=== PATIENT | female | born 1975 | race African-American/Black ===

== ENCOUNTER 2019-07-24 21:10 | Emergency (ER) | payer OTHER ==
[~2019-07-24] VITALS: Ht 167.6 cm; Wt 115.0 kg
[2019-07-24] MEDS ORDERED: ONDANSETRON ODT 4 MG TAB.RAPDIS PO ONE (21:30)
[2019-07-24] MEDS ORDERED: MECLIZINE 12.5 MG TABLET. PO PRN (21:30)
[2019-07-24] MEDS ORDERED: IV NORMAL SALINE 1,000ML 1,000 ML IV ONE (21:30)
--- NOTE | 2019-07-24 21:37 | PHYS DOC ---
Past History Past Medical History: Anxiety, Arthritis, Depression, GERD, Other Additional Past Medical Histor: fibromyalgia, dislexic, chronic back pain, hernia, mood swing Past Surgical History: , Other Additional Past Surgical Histo: wisdom teeth Alcohol Use: None General Adult EDM: Chief Complaint: DIZZY/LIGHT HEADED HPI: HPI: Patient is a 44 year old female who presents for evaluation of dizziness and nausea. Symptoms started about 4 hours prior to arrival. She did vomit at that time as well. She has been having some increasing lightheadedness. However she denies chest pain or shortness of air. Patient has a chronic headache and has chronic migraines. Patient does not have any reported focal deficits however. Patient has a history of chronic pain as well as fibromyalgia. Patient does not have any known cardiac history. Patient described it as the room was spinning. [] Review of Systems: Review of Systems: Constitutional: Denies fever or chills Eyes: Denies change in visual acuity HENT: Denies nasal congestion or sore throat Respiratory: Denies cough or shortness of breath Cardiovascular: Denies chest pain or edema GI: Denies abdominal pain, had nausea and vomiting, no bloody stools or diarrhea : Denies dysuria Musculoskeletal: Denies back pain or joint pain Integument: Denies rash Neurologic: chornic headache, no focal weakness or sensory changes Endocrine: Denies polyuria or polydipsia Lymphatic: Denies swollen glands Psychiatric: Denies depression or anxiety Heart Score: Risk Factors: Risk Factors: DM, Current or recent (<one month) smoker, HTN, HLP, family history of CAD, obesity. Risk Scores: Score 0 - 3: 2.5% MACE over next 6 weeks - Discharge Home Score 4 - 6: 20.3% MACE over next 6 weeks - Admit for Clinical Observation Score 7 - 10: 72.7% MACE over next 6 weeks - Early Invasive Strategies Current Medications: Current Meds: Current Medications Medications (Trade) Dose Ordered Sig/Chaya Start Time Stop Time Status Last Admin Dose Admin Meclizine HCl (Antivert) 25 mg 1X PRN 07/24/19 21:30 UNV Ondansetron HCl (Zofran Odt) 4 mg 1X ONCE 07/24/19 21:30 07/24/19 21:31 UNV Sodium Chloride 1,000 ml @ 1,000 mls/hr 1X ONCE 07/24/19 21:30 07/24/19 22:29 UNV Allergies: Allergies: Allergies Coded Allergies Type Severity Reaction Last Updated Verified No Known Drug Allergies 07/24/19 No Physical Exam: PE: Constitutional: Well developed, well nourished, mild acute distress, non-toxic appearance. [] HENT: Normocephalic, atraumatic, bilateral external ears normal, oropharynx moist, no oral exudates, nose normal. [] Eyes: PERRL, EOMI, conjunctiva normal, no discharge. [] Neck: Normal range of motion, no tenderness, supple, no stridor. [] Cardiovascular:Heart rate regular rhythm, no murmur [] Lungs & Thorax: Bilateral breath sounds clear to auscultation [] Abdomen: Bowel sounds normal, soft, no tenderness, no masses, no pulsatile masses. [] Skin: Warm, dry, no erythema, no rash. [] Back: No tenderness, no CVA tenderness. [] Extremities: No tenderness, no cyanosis, no clubbing, ROM intact, no edema. [] Neurologic: Alert and oriented X 3, normal motor function, normal sensory function, no focal deficits noted. [] Psychologic: Affect normal, judgement normal, mild anxious mood. [] Current Patient Data: Vital Signs: Vital Signs Date Time Temp Pulse Resp B/P (MAP) Pulse Ox O2 Delivery O2 Flow Rate FiO2 07/24/19 21:18 97.8 99 20 135/90 (105) 98 Room Air EKG: EKG: EKG read at 2134 showed normal sinus rhythm, rate 94, essentially unremarkable EKG, not STEMI [] Radiology/Procedures: Radiology/Procedures: [address] [address] IMAGING REPORT Signed PATIENT: MARTINEZ GOMEZ AACCOUNT: [id number] : 1975 LOCATION: ER AGE: 44 SEX: F EXAM STATUS: REG ER ORD. PHYSICIAN: KM FARRIS DO REASON: Dizziness, headache PROCEDURE: CT HEAD WO CONTRAST EXAM: CT Head without IV contrast CLINICAL HISTORY: Dizziness, headache COMPARISON: None. TECHNIQUE: Routine CT of the head without contrast. Soft tissues and bone windows were reviewed. PQRS compliance statement - One or more of the following individualized dose reduction techniques were utilized for this study: 1. Automated exposure control 2. Adjustment of the mA and/or kV according to patient size 3. Use of iterative reconstruction technique FINDINGS: There is no evidence of hemorrhage, mass or extra-axial fluid collection. Carpio-white differentiation is maintained with no evidence of edema. There is no mass effect or shift of the intracranial structures. The ventricles, basilar cisterns and cortical sulci are normal in size and configuration for the patients stated age. The cerebellum and brainstem are unremarkable. The calvarium demonstrates no evidence of fracture or focal lesion. There is normal aeration of the visualized paranasal sinuses and mastoid air cells. The visualized portions of the orbits are normal. IMPRESSION: No evidence for acute intracranial process. Electronically signed by: Laith Fernández MD (07/24/2019 10:46 PM) [facility] DICTATED AND SIGNED BY: LAITH FERNÁNDEZ MD DATE: 07/24/192245 CC: JIM RITCHIE MD; KM FARRIS DO ~ [] Course & Med Decision Making: Course & Med Decision Making Pertinent Labs and Imaging studies reviewed. (See chart for details) 2254 stable, feeling better at this time. Dizziness is now controlled. Patient's CBC, chemistries, troponin as well as CT scan no contrast were u nremarkable. Patient demonstrates a steady gait with no focal deficits or lateralizing signs. She will continue taking her home meclizine. Patient states she is already seen ENT and neurology for dizziness in the past. Prescription for limited number of Valium given because that seemed to improve her symptoms [] Dragon Disclaimer: Krupa Disclaimer: This electronic medical record was generated, in whole or in part, using a voice recognition dictation system. Departure Departure: Impression: Primary Impression: Dizziness Additional Impression: Nausea Disposition: HOME, SELF-CARE Condition: STABLE Referrals: JIM RITCHIE MD (PCP) Patient Instructions: Dizziness, Nausea, Adult Additional Instructions: Drink plenty fluids, rest, medication as directed, call and see your doctor right away and follow up, return if worsen Scripts Ondansetron Hcl (ZOFRAN) 4 Mg Tablet 1 TAB PO PRN Q6HRS PRN for NAUSEA, #12 TAB Prov: KM FARRIS DO 07/24/19 Diazepam (VALIUM) 5 Mg Tablet 5 MG PO BID for dizzy, anxiety, #10 TAB Prov: KM FARRIS DO 07/24/19 KM FARRIS DO Jul 24, 2019 21:37
--- NOTE | 2019-07-24 21:41 | EKG ---
[address] [address] Test Date: 2019-07-24 Test Time: 21:32:03 Pat Name: MARTINEZ GOMEZ Department: Room: Gender: F [employer] Maker: : 1975 Requested By: KM FARRIS Order Number: [id number] Reading MD: Ck Rodgers MD Measurements Intervals [place] Rate: 94 P: 52 MO: 154 QRS: 24 QRSD: 80 T: 39 QT: 332 QTc: 420 Interpretive Statements SINUS RHYTHM Electronically Signed On 07-25-2019 8:36:35 CDT by Ck Rodgers MD
[2019-07-24 21:59] LABS: BASO # 0.1 x10^3/uL (0.0-0.2); BASO % 1 % (0-3); EOS # 0.1 x10^3/uL (0.0-0.7); EOS % 2 % (0-3); HEMATOCRIT 35.3 % (36.0-47.0); HEMOGLOBIN 11.4 g/dL (12.0-15.5); LYMPH # 1.7 x10^3/uL (1.0-4.8); LYMPH % 23 % (24-48); MEAN CORPUSCULAR HEMOGLOBIN 29 pg (25-35); MEAN CORPUSCULAR HGB CONC 32 g/dL (31-37); MEAN CORPUSCULAR VOLUME 88 fL (79-100); MONO # 0.4 x10^3/uL (0.0-1.1); MONO % 5 % (0-9); NEUT % 69 % (31-73); PLATELET COUNT 257 x10^3/uL (140-400); RED BLOOD COUNT 3.99 x10^6/uL (3.50-5.40); RED CELL DISTRIBUTION WIDTH 14.1 % (11.5-14.5); WHITE BLOOD COUNT 7.2 x10^3/uL (4.0-11.0)
[2019-07-24 22:10] LABS: CLARITY,URINE BLOODY; COLOR,URINE RED
[2019-07-24 22:11] LABS: BACTERIA,URINE 0 /HPF (0-FEW); RBC,URINE TNTC /HPF (0-2); SQUAMOUS EPITHELIAL CELL,UR MOD /LPF; WBC,URINE 0 /HPF (0-4)
[2019-07-24 22:12] LABS: CALCIUM 8.4 mg/dL (8.5-10.1); CREATININE 0.9 mg/dL (0.6-1.0); GFR 81.9; POTASSIUM 3.8 mmol/L (3.5-5.1)
[2019-07-24 22:15] LABS: ALBUMIN 2.7 g/dL (3.4-5.0); ALBUMIN/GLOBULIN RATIO 0.7 (1.0-1.7); TOTAL BILIRUBIN 0.2 mg/dL (0.2-1.0); TOTAL PROTEIN 6.6 g/dL (6.4-8.2)
[2019-07-24] MEDS ORDERED: diphenhydrAMINE HCL 25 MG CAPSULE PO ONE (22:30)
[2019-07-24] MEDS ORDERED: diazePAM 5 MG TABLET. PO ONE (22:30)
--- NOTE | 2019-07-24 22:48 | RAD ---
EXAM: CT Head without IV contrast CLINICAL HISTORY: Dizziness, headache COMPARISON: None. TECHNIQUE: Routine CT of the head without contrast. Soft tissues and bone windows were reviewed. PQRS compliance statement - One or more of the following individualized dose reduction techniques were utilized for this study: 1. Automated exposure control 2. Adjustment of the mA and/or kV according to patient size 3. Use of iterative reconstruction technique FINDINGS: There is no evidence of hemorrhage, mass or extra-axial fluid collection. Carpio-white differentiation is maintained with no evidence of edema. There is no mass effect or shift of the intracranial structures. The ventricles, basilar cisterns and cortical sulci are normal in size and configuration for the patients stated age. The cerebellum and brainstem are unremarkable. The calvarium demonstrates no evidence of fracture or focal lesion. There is normal aeration of the visualized paranasal sinuses and mastoid air cells. The visualized portions of the orbits are normal. IMPRESSION: No evidence for acute intracranial process. Electronically signed by: Laith Rivers MD (07/24/2019 10:46 PM) [facility]
[2019-07-24 23:01] VITALS: BP 101/48
[2019-07-24] MEDS ORDERED: DIAZ5TAB PO (23:02)
[2019-07-24] MEDS ORDERED: ONDA4TAB7 PO (23:02)
== END 2019-07-24 23:12 | disposition home or self-care (01) ==
LOC: ER 21:10
DX: R42 Dizziness and giddiness (principal); R11.2 Nausea with vomiting, unspecified; G89.29 Other chronic pain; M79.7 Fibromyalgia; M19.90 Unspecified osteoarthritis, unspecified site; K21.9 Gastro-esophageal reflux disease without esophagitis
CPT/HCPCS: 36415; 70450; 80053; 81001; 84484; 85025; 93005; 96360; 99285; J8597; Q0162; Q0163; J7030

== ENCOUNTER 2019-09-09 18:09 | Emergency (ER) | payer OTHER ==
[~2019-09-09] VITALS: Ht 167.6 cm; Wt 138.0 kg
[2019-09-09 18:09] VITALS: BP 130/80
[~2019-09-09 18:09] MED LIST: DIAZ5TAB PO; ONDA4TAB7 PO
--- NOTE | 2019-09-09 19:03 | PHYS DOC ---
Past History Past Medical History: Anxiety, Arthritis, Depression, GERD, Other Additional Past Medical Histor: fibromyalgia, dislexic, chronic back pain, hernia, mood swing Past Surgical History: , Other Additional Past Surgical Histo: wisdom teeth Alcohol Use: None General Adult EDM: Chief Complaint: KNEE INJURY HPI: HPI: Patient is a 44 year old female who presents for evaluation of right knee pain after injury. Patient states 24 hours ago she felt a "pop" in her knee when walking. She is complaining of some numbness to her leg as well. She is able to bear weight but has some mild pain. Patient recently started working at [employer] and does a lot of walking. There is no other reported injuries. Patient does have history of prior surgery on that knee. Furthermore patient has a history of arthritis Review of Systems: Review of Systems: Constitutional: Denies fever or chills Eyes: Denies change in visual acuity HENT: Denies nasal congestion or sore throat Respiratory: Denies cough or shortness of breath Cardiovascular: Denies chest pain or edema GI: Denies abdominal pain, nausea, vomiting, bloody stools or diarrhea : Denies dysuria Musculoskeletal: chronic back pain, right knee tender, no loss bowel bladder control, no foot drop, no saddle anesthesia Integument: Denies rash Neurologic: Denies headache, focal weakness or sensory changes Endocrine: Denies polyuria or polydipsia Lymphatic: Denies swollen glands Psychiatric: Denies depression or anxiety Heart Score: Risk Factors: Risk Factors: DM, Current or recent (<one month) smoker, HTN, HLP, family histo ry of CAD, obesity. Risk Scores: Score 0 - 3: 2.5% MACE over next 6 weeks - Discharge Home Score 4 - 6: 20.3% MACE over next 6 weeks - Admit for Clinical Observation Score 7 - 10: 72.7% MACE over next 6 weeks - Early Invasive Strategies Allergies: Allergies: Allergies Coded Allergies Type Severity Reaction Last Updated Verified No Known Drug Allergies 07/24/19 No Physical Exam: PE: Constitutional: Well developed, well nourished, mild acute distress, non-toxic appearance. [] HENT: Normocephalic, atraumatic, bilateral external ears normal, oropharynx moist, no oral exudates, nose normal. [] Eyes: PERRL, EOMI, conjunctiva normal, no discharge. [] Neck: Normal range of motion, no tenderness, supple, no stridor. [] Cardiovascular:Heart rate regular rhythm, no murmur [] Lungs & Thorax: Bilateral breath sounds clear to auscultation [] Abdomen: Bowel sounds normal, soft, no tenderness, no masses, no pulsatile masses. [] Skin: Warm, dry, no erythema, no rash. [] Back: No tenderness. [] Extremities: mild medial tenderness right knee, no cyanosis, ROM intact, minimal edema. [] Neurologic: Alert and oriented, normal motor function, normal sensory function, no focal deficits noted. [] Psychologic: Affect normal, judgement normal, mood normal. [] EKG: EKG: [] Radiology/Procedures: Radiology/Procedures: [[address] [address] IMAGING REPORT Signed PATIENT: MARTINEZ GOMEZ AACCOUNT: [id number] : 1975 LOCATION: ER AGE: 44 SEX: F EXAM STATUS: REG ER ORD. PHYSICIAN: KM FARRIS DO REASON: Right knee pain, injury, Hx: knee surgery PROCEDURE: KNEE RIGHT 3V KNEE RIGHT 3V History: Reason: Right knee pain, injury, Hx: knee surgery / Spl. Instructions: / History: Technique: 3 views right knee. Comparison: None. Findings: Normal alignment. No fracture. No significant knee joint effusion. Minimal patellar spurring. Impression: 1. No acute osseous abnormality. Electronically signed by: Catracho Deshpande DO (09/09/2019 7:30 PM) [facility] DICTATED AND SIGNED BY: CATRACHO DESHPANDE DO DATE: 09/09/191929 CC: JIM RITCHIE MD; KM FARRIS DO ~] Course & Med Decision Making: Course & Med Decision Making Pertinent Labs and Imaging studies reviewed. (See chart for details) [] Dragon Disclaimer: Dragon Disclaimer: This electronic medical record was generated, in whole or in part, using a voice recognition dictation system. 1835 stable, feeling somewhat better at this time. X-rays failed to reveal any evidence of fracture or dislocation. Patient is able to bear weight. She already has anti-inflammatories at home. Patient off work tomorrow and will resume activity in 48 hours Departure Departure: Impression: Primary Impression: Strain of right knee Qualified Codes: S86.911A - Strain of unspecified muscle(s) and tendon(s) at lower leg level, right leg, initial encounter Disposition: HOME/RESIDENCE PRIOR TO ADM Condition: STABLE Referrals: JIM RITCHIE MD (PCP) Patient Instructions: Knee Sprain Additional Instructions: Rest, ice and elevate the injured right knee, limited weightbearing for the next 1 to 2 days. Take anti-inflammatory medication as directed, return if worse Justification of Admission: Justification of Admission: Justification of Admission Dx: N/A KM FARRIS DO Sep 09, 2019 19:03
[2019-09-09] MEDS ORDERED: KETOROLAC 60 MG/2 ML VIAL. IM ONE (19:15)
--- NOTE | 2019-09-09 19:33 | RAD ---
KNEE RIGHT 3V History: Reason: Right knee pain, injury, Hx: knee surgery / Spl. Instructions: / History: Technique: 3 views right knee. Comparison: None. Findings: Normal alignment. No fracture. No significant knee joint effusion. Minimal patellar spurring. Impression: 1. No acute osseous abnormality. Electronically signed by: Catracho Deshpande DO (09/09/2019 7:30 PM) [facility]
== END 2019-09-09 19:45 | disposition home or self-care (01) ==
LOC: ER 18:09
DX: S86.911A Strain of unspecified muscle(s) and tendon(s) at lower leg level, right leg, initial encounter (principal); M19.90 Unspecified osteoarthritis, unspecified site; K21.9 Gastro-esophageal reflux disease without esophagitis; G89.29 Other chronic pain; M79.7 Fibromyalgia; X50.9XXA Other and unspecified overexertion or strenuous movements or postures, initial encounter; Y93.01 Activity, walking, marching and hiking; Y92.89 Other specified places as the place of occurrence of the external cause; Y99.8 Other external cause status
CPT/HCPCS: 73562; 96372; 99283; J1885

== ENCOUNTER 2019-10-21 20:31 | Emergency (ER) | payer OTHER ==
[~2019-10-21] VITALS: Ht 167.6 cm; Wt 138.0 kg
[2019-10-21 20:31] VITALS: BP 128/68
[2019-10-21] MEDS ORDERED: IV NORMAL SALINE 1,000ML 1,000 ML IV ONE (20:45)
[2019-10-21] MEDS ORDERED: DEXAMETHASONE SOD PHOS 4 MG/ML VIAL IVP ONE (20:45)
[2019-10-21] MEDS ORDERED: diazePAM 5 MG TABLET PO ONE (20:45)
[2019-10-21 21:12] LABS: BASO % 1 % (0-3); EOS # 0.1 x10^3/uL (0.0-0.7); EOS % 1 % (0-3); HEMATOCRIT 36.2 % (36.0-47.0); HEMOGLOBIN 11.7 g/dL (12.0-15.5); LYMPH # 1.9 x10^3/uL (1.0-4.8); LYMPH % 22 % (24-48); MEAN CORPUSCULAR HEMOGLOBIN 29 pg (25-35); MEAN CORPUSCULAR HGB CONC 32 g/dL (31-37); MEAN CORPUSCULAR VOLUME 88 fL (79-100); MONO # 0.4 x10^3/uL (0.0-1.1); MONO % 5 % (0-9); NEUT # 6.2 x10^3uL (1.8-7.7); NEUT % 72 % (31-73); PLATELET COUNT 247 x10^3/uL (140-400); RED BLOOD COUNT 4.09 x10^6/uL (3.50-5.40); RED CELL DISTRIBUTION WIDTH 14.6 % (11.5-14.5); WHITE BLOOD COUNT 8.6 x10^3/uL (4.0-11.0)
[2019-10-21 21:20] LABS: BILIRUBIN,URINE NEG (NEG); CLARITY,URINE HAZY; COLOR,URINE YELLOW; GLUCOSE,URINE NEG (NEG)
--- NOTE | 2019-10-21 21:20 | EKG ---
[address] [address] Test Date: 2019-10-21 Test Time: 21:12:57 Pat Name: MARTINEZ GOMEZ Department: Room: Gender: F Adult Neurologist: : 1975 Requested By: MERLY SOMMERS Order Number: [id number] Reading MD: Measurements Intervals [place] Rate: 76 P: 0 MN: 128 QRS: 7 QRSD: 76 T: 8 QT: 362 QTc: 411 Interpretive Statements SINUS RHYTHM LOW VOLTAGE ABNORMAL ECG RI6.02 No previous ECG available for comparison
[2019-10-21 21:21] LABS: BACTERIA,URINE MOD /HPF (0-FEW); NITRITE,URINE NEG (NEG); SQUAMOUS EPITHELIAL CELL,UR MOD /LPF; UROBILINOGEN,URINE 0.2 mg/dL (0.2 mg/dL)
[2019-10-21 21:21] LABS: CALCIUM 8.8 mg/dL (8.5-10.1); CREATININE 0.9 mg/dL (0.6-1.0); GFR 81.9; POTASSIUM 3.6 mmol/L (3.5-5.1)
[2019-10-21 21:23] LABS: PREG TEST PT QUAL NEGATIVE (NEG)
--- NOTE | 2019-10-21 21:24 | PHYS DOC ---
Past History Past Medical History: Anxiety, Depression, GERD Additional Past Medical Histor: fibromyalgia, dislexic, chronic back pain, hernia, mood swing Past Surgical History: Cholecystectomy Additional Past Surgical Histo: wisdom teeth Alcohol Use: None General Adult EDM: Chief Complaint: DIZZY/LIGHT HEADED HPI: HPI: Patient is a [age] year old [sex] who presents with [] Review of Systems: Review of Systems: Constitutional: Denies fever or chills Eyes: Denies change in visual acuity HENT: Denies nasal congestion or sore throat Respiratory: Denies cough or shortness of breath Cardiovascular: Denies chest pain or edema GI: Denies abdominal pain, nausea, vomiting, bloody stools or diarrhea : Denies dysuria Musculoskeletal: Denies back pain or joint pain Integument: Denies rash Neurologic: Denies headache, focal weakness or sensory changes Endocrine: Denies polyuria or polydipsia Lymphatic: Denies swollen glands Psychiatric: Denies depression or anxiety Heart Score: Risk Factors: Risk Factors: DM, Current or recent (<one month) smoker, HTN, HLP, family history of CAD, obesity. Risk Scores: Score 0 - 3: 2.5% MACE over next 6 weeks - Discharge Home Score 4 - 6: 20.3% MACE over next 6 weeks - Admit for Clinical Observation Score 7 - 10: 72.7% MACE over next 6 weeks - Early Invasive Strategies Current Medications: Current Meds: Current Medications Medications (Trade) Dose Ordered Sig/Chaya Start Time Stop Time Status Last Admin Dose Admin Dexamethasone Sodium Phosphate (Decadron) 10 mg 1X ONCE 10/21/19 20:45 10/21/19 20:46 DC 10/21/19 21:00 10 MG Diazepam (Valium) 5 mg 1X ONCE 10/21/19 20:45 10/21/19 20:46 DC 10/21/19 21:00 5 MG Sodium Chloride 1,000 ml @ 1,000 mls/hr 1X ONCE 10/21/19 20:45 10/21/19 21:44 10/21/19 21:05 1,000 MLS/HR Allergies: Allergies: Allergies Coded Allergies Type Severity Reaction Last Updated Verified No Known Drug Allergies 07/24/19 No Physical Exam: PE: Constitutional: Well developed, well nourished, no acute distress, non-toxic appearance. [] HENT: Normocephalic, atraumatic, bilateral external ears normal, oropharynx moist, no oral exudates, nose normal. [] Eyes: PERRLA, EOMI, conjunctiva normal, no discharge. [] Neck: Normal range of motion, no tenderness, supple, no stridor. [] Cardiovascular:Heart rate regular rhythm, no murmur [] Lungs & Thorax: Bilateral breath sounds clear to auscultation [] Abdomen: Bowel sounds normal, soft, no tenderness, no masses, no pulsatile masses. [] Skin: Warm, dry, no erythema, no rash. [] Back: No tenderness, no CVA tenderness. [] Extremities: No tenderness, no cyanosis, no clubbing, ROM intact, no edema. [] Neurologic: Alert and oriented X 3, normal motor function, normal sensory function, no focal deficits noted. [] Psychologic: Affect normal, judgement normal, mood normal. [] Current Patient Data: Labs: Laboratory Tests Test 10/21/19 20:45 10/21/19 20:55 White Blood Count 8.6 x10^3/uL (4.0-11.0) Red Blood Count 4.09 x10^6/uL (3.50-5.40) Hemoglobin 11.7 g/dL (12.0-15.5) L Hematocrit 36.2 % (36.0-47.0) Mean Corpuscular Volume 88 fL (79-100) Mean Corpuscular Hemoglobin 29 pg (25-35) Mean Corpuscular Hemoglobin Concent 32 g/dL (31-37) Red Cell Distribution Width 14.6 % (11.5-14.5) H Platelet Count 247 x10^3/uL (140-400) Neutrophils (%) (Auto) 72 % (31-73) Lymphocytes (%) (Auto) 22 % (24-48) L Monocytes (%) (Auto) 5 % (0-9) Eosinophils (%) (Auto) 1 % (0-3) Basophils (%) (Auto) 1 % (0-3) Neutrophils # (Auto) 6.2 x10^3uL (1.8-7.7) Lymphocytes # (Auto) 1.9 x10^3/uL (1.0-4.8) Monocytes # (Auto) 0.4 x10^3/uL (0.0-1.1) Eosinophils # (Auto) 0.1 x10^3/uL (0.0-0.7) Basophils # (Auto) 0.0 x10^3/uL (0.0-0.2) Sodium Level 142 mmol/L (136-145) Potassium Level 3.6 mmol/L (3.5-5.1) Chloride Level 106 mmol/L (98-107) Carbon Dioxide Level 26 mmol/L (21-32) Anion Gap 10 (6-14) Blood Urea Nitrogen 21 mg/dL (7-20) H Creatinine 0.9 mg/dL (0.6-1.0) Estimated GFR (Cockcroft-Gault) 81.9 BUN/Creatinine Ratio 23 (6-20) H Glucose Level 86 mg/dL (70-99) Calcium Level 8.8 mg/dL (8.5-10.1) Total Bilirubin Pending Aspartate Amino Transferase (AST) Pending Alanine Aminotransferase (ALT) Pending Alkaline Phosphatase Pending Creatine Kinase Pending Creatine Kinase MB (Mass) Pending Creatine Kinase MB Relative Index Pending Total Protein Pending Albumin Pending Albumin/Globulin Ratio Pending Urine Collection Type Unknown Urine Color Yellow Urine Clarity Hazy Urine pH 5.5 Urine Specific [place] >=1.030 Urine Protein Neg (NEG-TRACE) Urine Glucose (UA) Neg mg/dL (NEG) Urine Ketones (Stick) Neg mg/dL (NEG) Urine Blood Trace (NEG) Urine Nitrite Neg (NEG) Urine Bilirubin Neg (NEG) Urine Urobilinogen Dipstick 0.2 mg/dL (0.2 mg/dL) Urine Leukocyte Esterase Neg (NEG) Urine RBC 3-5 /HPF (0-2) Urine WBC 1-4 /HPF (0-4) Urine Squamous Epithelial Cells Mod /LPF Urine Bacteria Mod /HPF (0-FEW) EKG: EKG: @2112 NSR at 76bpm, NO ST elevation, QRS 76ms, QT/QTc 362/411ms, low voltage QRS Radiology/Procedures: Radiology/Procedures: [] Course & Med Decision Making: Course & Med Decision Making Pertinent Labs and Imaging studies reviewed. (See chart for details) [] Dragon Disclaimer: Dragon Disclaimer: This electronic medical record was generated, in whole or in part, using a voice recognition dictation system. Departure Departure: Impression: Primary Impression: Dizziness Disposition: 01 HOME/RESIDENCE PRIOR TO ADM Condition: STABLE Referrals: JIM RITCHIE MD (PCP) MALLORIE GAN MD Patient Instructions: Dizziness, [id number], Vertigo, [id number] Additional Instructions: May also use Antivert (meclizine) which has been previously prescribed to you. Scripts Diazepam (VALIUM) 2 Mg Tablet 2 MG PO TID PRN for DIZZINESS, #10 TAB Prov: MERLY SOMMERS DO 10/21/19 Justification of Admission: Justification of Admission: Justification of Admission Dx: N/A MERLY SOMMERS DO Oct 21, 2019 21:24
[2019-10-21 21:37] LABS: ALBUMIN 2.7 g/dL (3.4-5.0); ALBUMIN/GLOBULIN RATIO 0.8 (1.0-1.7); TOTAL BILIRUBIN 0.3 mg/dL (0.2-1.0); TOTAL PROTEIN 6.1 g/dL (6.4-8.2)
[2019-10-21] MEDS ORDERED: DIAZ2TAB PO (22:28)
== END 2019-10-21 22:35 | disposition home or self-care (01) ==
LOC: ER 20:31
DX: R42 Dizziness and giddiness (principal); F41.9 Anxiety disorder, unspecified; F32.9 Major depressive disorder, single episode, unspecified; K21.9 Gastro-esophageal reflux disease without esophagitis; M79.7 Fibromyalgia; G89.29 Other chronic pain; Z90.49 Acquired absence of other specified parts of digestive tract
CPT/HCPCS: 36415; 80053; 81001; 82553; 84484; 84703; 85025; 85610; 85730; 87086; 93005; 96361; 96374; 99284; J1100; J7030

== ENCOUNTER 2019-11-18 13:23 | Emergency (ER) | payer OTHER ==
[~2019-11-18] VITALS: Ht 167.6 cm; Wt 138.8 kg
[~2019-11-18 13:23] MED LIST changes: +DIAZ2TAB PO
--- NOTE | 2019-11-18 13:40 | PHYS DOC ---
Past History Past Medical History: Anxiety, Arthritis, Depression, Fibromyalgia, GERD, IBS, Migraines Additional Past Medical Histor: dislexic, chronic back pain, hernia, mood swing Past Surgical History: Cholecystectomy, Knee Replacement Additional Past Surgical Histo: wisdom teeth, hernia Alcohol Use: None Adult General Chief Complaint Chief Complaint: LOWER EXTREMITY SWELLING HPI HPI Patient is a 44-year-old female who presents for lower extremity swelling. Onset was noted within the past 24 hours. Patient reports increased home stress, reports this involves biological father whom she has with and there son. Mother reports difficult custody bradley at present, made sure it [id number] to obtain her son and subsequently drove 23 hours in the car back to [place] to ensure her son was home in time to start the academic school year. Nonetheless, the day after said motor vehicle journey, patient reported noticeable swelling in bilateral feet. Patient denies any fever, COVID-19 symptoms, headache, lightheadedness, shortness of breath, chest pain, abdominal pain, hemoptysis, exogenous estrogen use, recent surgery, or history of malignancy. She does admit history of anxiety and extensive cardiovascular work-up in outpatient setting that has been grossly unremarkable to date Review of Systems Review of Systems Fourteen body systems of review of systems have been reviewed. See HPI for pertinent positives and negative responses, other coffey all other systems are negative, non-pertinent or non-contributory Allergies Allergies Allergies Coded Allergies Type Severity Reaction Last Updated Verified No Known Drug Allergies 07/24/19 No Physical Exam Physical Exam Constitutional: Well developed, obese, well nourished, no acute distress, non- toxic appearance. HENT: Normocephalic, atraumatic, bilateral external ears normal, oropharynx moist, no oral exudates, nose normal. Eyes: PERRLA, EOMI, conjunctiva normal, no discharge. Neck: Normal range of motion, no tenderness, supple, no stridor. Cardiovascular: Heart rate regular, sinus rhythm, no murmurs rubs or gallops Lungs & Thorax: Bilateral breath sounds clear to auscultation, slightly diminished due to body habitus Abdomen: Bowel sounds normal, soft, no tenderness, no masses, no pulsatile masses. Nonsurgical abdomen, no peritoneal signs Skin: Warm, dry, no erythema, no rash. Back: No tenderness, no CVA tenderness. Extremities: No tenderness, no cyanosis, no clubbing, ROM intact, no impressive edema, bilateral lower extremity circumference equal, negative Homans sign bilaterally Neurologic: Alert and oriented X 3, grossly normal motor & sensory function, no focal deficits noted. Psychologic: Affect normal, judgement normal, mood normal. Current Patient Data Vital Signs Vital Signs Date Time Temp Pulse Resp B/P (MAP) Pulse Ox O2 Delivery O2 Flow Rate FiO2 11/18/19 14:34 78 20 94/70 (78) 99 Room Air 11/18/19 13:30 98.1 80 20 115/89 (98) Room Air 97.0 EKG EKG EKG ordered and interpreted by myself at 1455 hrs. as normal sinus rhythm at 73 bpm, unremarkable intervals, no axis deviation, no ischemic findings, no fascicular blocks, no STEMI Radiology/Procedures Radiology/Procedures PROCEDURE: CHEST AP ONLY INDICATION: Reason: lower extremity edema / Spl. Instructions: / History: COMPARISON: None. FINDINGS: Single view of chest obtained. Cardiomediastinal silhouette is enlarged. Suboptimal exposure limits evaluation. A definite well-defined infiltrate is not seen within limits of this exam. The right mid to upper lung is not well evaluated. IMPRESSION: * Limited exam secondary to degree of exposure but definite focal airspace consolidation is not seen. Electronically signed by: Je Brock MD (11/18/2019 2:54 PM) [id number] ] Course & Med Decision Making Course & Med Decision Making Airway patent, breathing unlabored and unremarkable, vital signs also obtained and grossly unremarkable Comprehensive history and physical exam obtained Discussed above in addition to past medical history and outpatient work-up that is significant for significant cardiovascular work-up Discussed most likely diagnosis of dependent edema from prolonged immobility and lack of physical exercise versus other more serious pathology such as heart failure and blood clots PERC negative, discussed utility in obtaining d-dimer; however, also discussed limitations in this study given patient's obesity Asymptomatic patient preferred supportive care consisting of implementing compression socks, increasing physical activity, and decrease sodium intake with close outpatient follow-up I feel this plan of care is appropriate for patient given that she has good outpatient access to healthcare with PCP and previously established dining service worker I did stress that this might be an acute presentation of more concerning pathology, patient was aware Strict return precautions were discussed at length with good understanding by patient, all questions and concerns addressed prior to ER departure home in stable condition Dragon Disclaimer Dragon Disclaimer This electronic medical record was generated, in whole or in part, using a voice recognition dictation system. PERC Rule for PE PERC Rule for PE Response (Comments) Value Age > 50: No 0 HR > 100: No 0 Sa02 on room air <95%: No 0 Unilateral leg swelling: No 0 Hemoptysis: No 0 Recent surgery or trauma: No 0 Prior PE or DVT: No 0 Hormone use: No 0 Total 0 Departure Departure: Impression: Primary Impression: Leg edema Disposition: HOME/RESIDENCE PRIOR TO ADM Condition: STABLE Referrals: JIM RITCHIE MD (PCP) Patient Instructions: Edema, Peripheral Edema Additional Instructions: As discussed prior to ER departure, please continue to call PCP to schedule outpatient follow-up in upcoming 1 to 7 days Return precautions were discussed at length with you prior to discharge, please call or re-present to our ER if any of said symptoms reappear I recommend you adhere to a low-salt diet, increase your physical activity, and utilize vlau-vua-ldztiji compression socks daily to assist with resolution of your lower extremity swelling Given extensive cardiovascular work-up performed in last 12 months, low risk for further diagnostic work-up or intervention this ER visit With that said, it was discussed that this could be an acute presentation of more serious pathology so please keep in mind return precautions discussed It was a pleasure to take care of you, we hope you get feeling better soon! Justification of Admission: Justification of Admission: Justification of Admission Dx: N/A SAMANTHA MESA DO Nov 18, 2019 13:40
[2019-11-18 14:34] VITALS: BP 94/70
--- NOTE | 2019-11-18 14:57 | RAD ---
INDICATION: Reason: lower extremity edema / Spl. Instructions: / History: COMPARISON: None. FINDINGS: Single view of chest obtained. Cardiomediastinal silhouette is enlarged. Suboptimal exposure limits evaluation. A definite well-defined infiltrate is not seen within limits of this exam. The right mid to upper lung is not well evaluated. IMPRESSION: * Limited exam secondary to degree of exposure but definite focal airspace consolidation is not seen. Electronically signed by: Je Brock MD (11/18/2019 2:54 PM) [id number]
--- NOTE | 2019-11-18 15:52 | EKG ---
[address] [address] Test Date: 2019-11-18 Test Time: 14:46:14 Pat Name: MARTINEZ GOMEZ Department: Room: Gender: F Hims Coder: : 1975 Requested By: SAMANTHA MESA Order Number: [id number] Reading MD: Measurements Intervals [place] Rate: 73 P: 0 [place]: 122 QRS: 11 QRSD: 78 T: 11 QT: 354 QTc: 393 Interpretive Statements SINUS RHYTHM LOW LIMB LEAD VOLTAGE NO SPECIFIC ECG ABNORMALITIES RI6.02 No previous ECG available for comparison
== END 2019-11-18 15:34 | disposition home or self-care (01) ==
LOC: ER 13:23
DX: R60.0 Localized edema (principal); F41.9 Anxiety disorder, unspecified; M19.90 Unspecified osteoarthritis, unspecified site; F32.9 Major depressive disorder, single episode, unspecified; M79.7 Fibromyalgia; K21.9 Gastro-esophageal reflux disease without esophagitis; K58.9 Irritable bowel syndrome, unspecified; G43.909 Migraine, unspecified, not intractable, without status migrainosus; G89.29 Other chronic pain
CPT/HCPCS: 71045; 93005; 99284

== ENCOUNTER → 2020-04-02 | Outpatient (CLI) | payer OTHER ==
--- NOTE | 2020-04-02 14:59 | RAD ---
EXAM: Bilateral diagnostic mammogram. HISTORY: 35-year-old female presents for evaluation status post benign right breast biopsy. The patie nt is due for bilateral markedly TECHNIQUE: Full-field digital craniocaudal and mediolateral oblique views of both breasts are obtaine d for evaluation. Computer aided detection was applied. COMPARISON: 04/16/2019 BREAST PARENCHYMAL DENSITY: Level B - Scattered fibroglandular densities. FINDINGS: There is a biopsy clip within the central right breast, consistent with the site of prior r eported benign biopsy. There is no new suspicious mass, calcification or distortion within either destiney ast. There are stable areas of asymmetry with allowing for differences in imaging technique. IMPRESSION: BI-RADS Category 2: Benign finding(s). RECOMMENDATION: Annual mammography is recommended. If your mammogram demonstrates that you have dense breast tissue, which could hide abnormalities, and if you have other risk factors for breast cancer that have been identified, you might benefit from s upplemental screening tests that may be suggested by your ordering physician. Dense breast tissue, i n and of itself, is a relatively common condition. This information is not provided to cause undue c oncern, but rather to raise your awareness and to promote discussion with your physician regarding th e presence of other risk factors, in addition to dense breast tissue. A report of your mammography re sults will be sent to you and your physician. You should contact your physician if you have any ques tions or concerns regarding this report. Mammography is a sensitive method for finding small breast cancers, but it does not detect them all a nd is not a substitute for careful clinical examination. A negative mammogram does not negate a clin ically suspicious finding and should not result in delay in biopsying a clinically suspicious abnorma lity. PQRS compliance statement - Patient information was entered into a reminder system with a target due date for the next mammogram. "Our facility is accredited by the [employer] Mammography Program." Electronically signed by: Radha Austin MD (04/02/2020 2:57 PM) [id number]
== END ==
LOC: MAMMO 12:35
PROVIDERS: ATTEND Physician Assistant Medical
DX: R92.8 Other abnormal and inconclusive findings on diagnostic imaging of breast (principal)
CPT/HCPCS: 77066

== ENCOUNTER 2020-05-22 07:29 | Emergency (ER) | payer OTHER ==
[~2020-05-22] VITALS: Ht 167.6 cm; Wt 128.8 kg
[2020-05-22 07:35] VITALS: BP 125/78
--- NOTE | 2020-05-22 08:04 | PHYS DOC ---
Past History Past Medical History: Anxiety, Arthritis, Depression, Fibromyalgia, GERD, Migraines Additional Past Medical Histor: dislexic, chronic back pain, hernia, mood swing Past Surgical History: Cholecystectomy, , Knee Replacement Additional Past Surgical Histo: wisdom teeth, hernia, nasal surgeries Alcohol Use: None Adult General Chief Complaint Chief Complaint: FATIGUE HPI HPI Patient is a 45-year-old female with past medical history of depression who presents to the emergency room complaining of fatigue. Patient was started on Lexapro yesterday. She did takes the Lexapro in the morning. She felt sleepy all day and then had a difficult time sleeping last night. She thinks she got about 5 hours of sleep last night. She denies any other associated symptoms. She denies URI symptoms, sore throat, cough, shortness of breath, fever, chills, sweats, nausea, vomiting, diarrhea, abdominal pain, difficulty walking, headache. She has never been on this medicine previously. Review of Systems Review of Systems Complete ROS is negative unless otherwise documented in HPI Allergies Allergies Allergies Coded Allergies Type Severity Reaction Last Updated Verified No Known Drug Allergies 05/22/20 No Physical Exam Physical Exam General: Awake, alert, NAD. Well Nourished, well hydrated. Cooperative HEENT: Atraumatic, EOMI, PERRL, airway patent, moist oral mucosa Neck: Supple, trachea midline Respiratory: CTA bilaterally, normal effort, no wheezing/crackles CV: RRR, no murmur, cap refill <2 GI: Soft, nondistended, nontender, no masses MSK: No obvious deformities Skin: Warm, dry, intact Neuro: A&O x3, speech NL, sensory and motor grossly intact, no focal deficits Psych: Normal affect, normal mood, not suicidal or homicidal Current Patient Data Vital Signs Vital Signs Date Time Temp Pulse Resp B/P (MAP) Pulse Ox O2 Delivery O2 Flow Rate FiO2 05/22/20 07:35 98.2 74 16 125/78 (94) 97 EKG EKG [] Radiology/Procedures Radiology/Procedures [] Heart Score Risk Factors: Risk Factors: DM, Current or recent (<one month) smoker, HTN, HLP, family history of CAD, obesity. Risk Scores: Risk Factors: DM, Current or recent (<one month) smoker, HTN, HLP, family history of CAD, obesity. Course & Med Decision Making Course & Med Decision Making Pertinent Labs and Imaging studies reviewed. (See chart for details) Patient is a 45-year-old female who presents to the emergency room complaining of fatigue after starting Lexapro yesterday. Patient does not have any associated symptoms. She is overall well-appearing. Vitals are unremarkable. I have discussed with the patient that she should take the Lexapro at night. We have discussed that it does cause fatigue. We discussed that a lot of times the symptoms improve over the first 2 or 3 weeks of the medication. I discussed with the patient that if she does develop any further symptoms she should at that time return to the emergency room for reevaluation. Patient's test results and vitals while in the ED were fully reviewed and discussed with the patient. Patient is stable and at this time does not need admission to the hospital. We have discussed strict return precautions and the importance of following up with their Primary Care Physician. Patient stated understanding and was given an opportunity to ask any questions. Patient is in agreement with plan. Dragon Disclaimer Dragon Disclaimer This electronic medical record was generated, in whole or in part, using a voice recognition dictation system. Departure Departure: Impression: Primary Impression: Fatigue Additional Impression: Medication side effect Disposition: 01 DC HOME SELF CARE/HOMELESS Condition: STABLE Referrals: JIM RITCHIE MD (PCP) Patient Instructions: Fatigue Additional Instructions: Thank you for choosing [facility] for your medical care. You were seen today for fatigue. We feel that it is likely your fatigue is secondary to your new medication Lexapro. We recommend taking the medication a couple hours before you go to bed at night to help decrease the side effect of fatigue. If you continue to have severe symptoms you should follow-up with the guidance Center for evaluation. Many times the side effect of fatigue improves over the first 2 or 3 weeks of taking the medication. Other common side effects of Lexapro include nausea, fatigue, dizziness, stomach pain, decreased appetite, change in sex drive. Problem Qualifiers AKI TAY MD May 22, 2020 08:04
== END 2020-05-22 08:15 | disposition home or self-care (01) ==
LOC: ER 07:29
DX: R53.83 Other fatigue (principal); T43.225A Adverse effect of selective serotonin reuptake inhibitors, initial encounter; F41.9 Anxiety disorder, unspecified; M19.90 Unspecified osteoarthritis, unspecified site; F32.9 Major depressive disorder, single episode, unspecified; M79.7 Fibromyalgia; K21.9 Gastro-esophageal reflux disease without esophagitis; G43.909 Migraine, unspecified, not intractable, without status migrainosus; G89.29 Other chronic pain; Y92.89 Other specified places as the place of occurrence of the external cause
CPT/HCPCS: 99281

== ENCOUNTER 2020-09-08 21:18 | Emergency (ER) | payer OTHER ==
[~2020-09-08] VITALS: Ht 167.6 cm; Wt 127.3 kg
[2020-09-08] MEDS ORDERED: ONDANSETRON PF 4 MG/2 ML VIAL. IVP ONE (21:45)
[2020-09-08] MEDS ORDERED: IV NORMAL SALINE 1,000ML 1,000 ML IV ONE (21:45)
[2020-09-08 22:09] LABS: BILIRUBIN,URINE NEG (NEG); CLARITY,URINE CLEAR; COLOR,URINE YELLOW; GLUCOSE,URINE NEG (NEG)
[2020-09-08 22:10] LABS: NITRITE,URINE NEG (NEG); UROBILINOGEN,URINE 0.2 mg/dL (0.2 mg/dL)
[2020-09-08 22:12] LABS: BACTERIA,URINE 0 /HPF (0-FEW); SQUAMOUS EPITHELIAL CELL,UR MANY /LPF; WBC,URINE 0 /HPF (0-4)
[2020-09-08 22:20] LABS: BASO % 1 % (0-3); EOS # 0.1 x10^3/uL (0.0-0.7); EOS % 2 % (0-3); HEMATOCRIT 37.1 % (36.0-47.0); HEMOGLOBIN 12.2 g/dL (12.0-15.5); LYMPH # 1.8 x10^3/uL (1.0-4.8); LYMPH % 25 % (24-48); MEAN CORPUSCULAR HEMOGLOBIN 29 pg (25-35); MEAN CORPUSCULAR HGB CONC 33 g/dL (31-37); MEAN CORPUSCULAR VOLUME 88 fL (79-100); MONO # 0.4 x10^3/uL (0.0-1.1); MONO % 5 % (0-9); NEUT # 5.1 x10^3uL (1.8-7.7); NEUT % 68 % (31-73); PLATELET COUNT 232 x10^3/uL (140-400); RED BLOOD COUNT 4.21 x10^6/uL (3.50-5.40); RED CELL DISTRIBUTION WIDTH 14.9 % (11.5-14.5); WHITE BLOOD COUNT 7.5 x10^3/uL (4.0-11.0)
[2020-09-08 22:22] LABS: CALCIUM 8.3 mg/dL (8.5-10.1); GFR 59.7; POTASSIUM 3.8 mmol/L (3.5-5.1)
[2020-09-08 22:29] LABS: ALBUMIN 2.8 g/dL (3.4-5.0); ALBUMIN/GLOBULIN RATIO 0.7 (1.0-1.7); TOTAL BILIRUBIN 0.3 mg/dL (0.2-1.0)
[2020-09-08] MEDS ORDERED: METOCLOPRAMIDE HCL 10 MG/2 ML VIAL. IVP ONE (22:45)
[2020-09-08] MEDS ORDERED: BUPR150T15 PO (22:48)
[2020-09-08] MEDS ORDERED: CETI10TA74 PO (22:48)
[2020-09-08] MEDS ORDERED: SULF500T3 PO (22:48)
[2020-09-08] MEDS ORDERED: TOPI50TA38 PO (22:51)
[2020-09-08] MEDS ORDERED: ESCITALOPRAM OX10 MG PO (22:51)
[2020-09-08] MEDS ORDERED: TRAZ-120 PO (22:51)
--- NOTE | 2020-09-08 22:54 | PHYS DOC ---
Past History Past Medical History: Anxiety, Arthritis, Depression, Fibromyalgia, GERD, Migraines Additional Past Medical Histor: dislexic, chronic back pain, hernia, mood swing (MAURY MORTENSEN APRN) Past Surgical History: Cholecystectomy, , Knee Replacement Additional Past Surgical Histo: wisdom teeth, hernia, nasal surgeries (MAURY MORTENSEN APRN) Alcohol Use: None (MAURY MORTENSEN APRN) Adult General Chief Complaint Chief Complaint: NAUSEA/VOMITING/DIARRHEA HPI HPI Patient is a 45-year-old female who presents to the emergency department with chief complaint "I am just dehydrated and need some fluids ". Patient states she has been vomiting today reporting that she gets this way when she becomes dehydrated. Patient states that she gets dehydrated because of her work environment is very warm. Patient states that she also gets a headache when she becomes dehydrated and has developed a headache today. Patient denies this being the worst headache of her life. Patient states is only mild. Patient reports taking Topamax, Lexapro, amitriptyline, Wellbutrin, and cetirizine for prescription medications, sees Dr. Jesús Coughlin for primary care. States she is allergic to all smells and depending what smells there are is what type of allergic reaction that she will have. Patient reports starting her last menstrual cycle last week and just ending a day or 2 ago. Patient reports having the pressure rods placed in her uterine tubes for control. Patient denies any other physical complaints or physical concerns. (MAURY MORTENSEN APRN) Review of Systems Review of Systems 14 body systems of review of systems have been reviewed. See HPI for pertinent positives and negative responses, otherwise all other systems are negative, nonpertinent or noncontributory. (MAURY MORTENSEN APRN) Current Medications Current Medications Current Medications Medications (Trade) Dose Ordered Sig/Chaya Start Time Stop Time Status Last Admin Dose Admin Ondansetron HCl (Zofran) 4 mg 1X ONCE 09/08/20 21:45 09/08/20 21:46 DC 09/08/20 21:55 4 MG Sodium Chloride 1,000 ml @ 1,000 mls/hr 1X ONCE 09/08/20 21:45 09/08/20 22:44 DC 09/08/20 21:54 1,000 MLS/HR (MAURY MORTENSEN APRN) Allergies Allergies Allergies Coded Allergies Type Severity Reaction Last Updated Verified No Known Drug Allergies 09/08/20 No (MAURY MORTENSEN APRN) Physical Exam Physical Exam Constitutional: Well developed, well nourished, no acute distress, non-toxic appearance. 45-year-old female in no apparent distress. HENT: Normocephalic, atraumatic, bilateral external ears normal, oropharynx moist, no oral exudates, nose normal. Eyes: PERRLA, EOMI, conjunctiva normal, no discharge. Neck: Normal range of motion, no tenderness, supple, no stridor. Cardiovascular:Heart rate regular rhythm, no murmur, heart sounds S1-S2 to auscultation. Lungs & Thorax: Bilateral breath sounds clear to auscultation no adventitious lung sounds appreciated. Abdomen: Bowel sounds normal, soft, no tenderness, no masses, no pulsatile ma sses. Skin: Warm, dry, no erythema, no rash. Back: No tenderness, no CVA tenderness. Extremities: No tenderness, no cyanosis, no clubbing, ROM intact, no edema. Neurologic: Alert and oriented X 3, normal motor function, normal sensory function, no focal deficits noted. Psychologic: Affect normal, judgement normal, mood normal. (MAURY MORTENSEN APRN) Physical Exam Constitutional: Well developed, obese, no acute distress, non-toxic appearance HENT: Normocephalic, atraumatic Eyes: Conjunctiva normal, no discharge Neck: Normal range of motion, supple Lungs & Thorax: No respiratory distress, equal chest rise and fall Abdomen: Soft, no tenderness, no guarding/rebound tenderness/distention Skin: Warm, dry, no erythema, no rash Back: No tenderness, no CVA tenderness Extremities: No tenderness, ROM intact, no edema Neurologic: Alert and oriented X 3, no focal deficits noted Psychologic: Affect normal, judgment normal (MAURY SOMMERS DO) Current Patient Data Vital Signs Vital Signs Date Time Temp Pulse Resp B/P (MAP) Pulse Ox O2 Delivery O2 Flow Rate FiO2 09/08/20 21:20 98.4 86 20 135/73 (93) 98 Room Air Lab Results Laboratory Tests Test 09/08/20 21:36 09/08/20 21:45 09/08/20 21:56 Urine Collection Type Unknown Urine Color Yellow Urine Clarity Clear Urine pH 6.5 Urine Specific [place] >=1.030 Urine Protein Neg (NEG-TRACE) Urine Glucose (UA) Neg mg/dL (NEG) Urine Ketones (Stick) Neg mg/dL (NEG) Urine Blood Mod (NEG) Urine Nitrite Neg (NEG) Urine Bilirubin Neg (NEG) Urine Urobilinogen Dipstick 0.2 mg/dL (0.2 mg/dL) Urine Leukocyte Esterase Neg (NEG) Urine RBC 6-10 /HPF (0-2) Urine WBC 0 /HPF (0-4) Urine Squamous Epithelial Cells Many /LPF Urine Bacteria 0 /HPF (0-FEW) POC Urine HCG, Qualitative hcg negative (Negative) White Blood Count 7.5 x10^3/uL (4.0-11.0) Red Blood Count 4.21 x10^6/uL (3.50-5.40) Hemoglobin 12.2 g/dL (12.0-15.5) Hematocrit 37.1 % (36.0-47.0) Mean Corpuscular Volume 88 fL (79-100) Mean Corpuscular Hemoglobin 29 pg (25-35) Mean Corpuscular Hemoglobin Concent 33 g/dL (31-37) Red Cell Distribution Width 14.9 % (11.5-14.5) H Platelet Count 232 x10^3/uL (140-400) Neutrophils (%) (Auto) 68 % (31-73) Lymphocytes (%) (Auto) 25 % (24-48) Monocytes (%) (Auto) 5 % (0-9) Eosinophils (%) (Auto) 2 % (0-3) Basophils (%) (Auto) 1 % (0-3) Neutrophils # (Auto) 5.1 x10^3uL (1.8-7.7) Lymphocytes # (Auto) 1.8 x10^3/uL (1.0-4.8) Monocytes # (Auto) 0.4 x10^3/uL (0.0-1.1) Eosinophils # (Auto) 0.1 x10^3/uL (0.0-0.7) Basophils # (Auto) 0.0 x10^3/uL (0.0-0.2) Sodium Level 144 mmol/L (136-145) Potassium Level 3.8 mmol/L (3.5-5.1) Chloride Level 108 mmol/L (98-107) H Carbon Dioxide Level 27 mmol/L (21-32) Anion Gap 9 (6-14) Blood Urea Nitrogen 12 mg/dL (7-20) Creatinine 1.0 mg/dL (0.6-1.0) Estimated GFR (Cockcroft-Gault) 59.7 BUN/Creatinine Ratio 12 (6-20) Glucose Level 93 mg/dL (70-99) Calcium Level 8.3 mg/dL (8.5-10.1) L Total Bilirubin 0.3 mg/dL (0.2-1.0) Aspartate Amino Transferase (AST) 16 U/L (15-37) Alanine Aminotransferase (ALT) 19 U/L (14-59) Alkaline Phosphatase 155 U/L (46-116) H Total Protein 7.0 g/dL (6.4-8.2) Albumin 2.8 g/dL (3.4-5.0) L Albumin/Globulin Ratio 0.7 (1.0-1.7) L (MAURY MORTENSEN APRN) EKG EKG [] (MAURY MORTENSEN APRN) Radiology/Procedures Radiology/Procedures [] (MAURY MORTENSEN APRN) Heart Score C/O Chest Pain: No Risk Factors: Risk Factors: DM, Current or recent (<one month) smoker, HTN, HLP, family history of CAD, obesity. Risk Scores: Risk Factors: DM, Current or recent (<one month) smoker, HTN, HLP, family history of CAD, obesity. (MAURY MORTENSEN APRN) Course & Med Decision Making Course & Med Decision Making Pertinent Labs and Imaging studies reviewed. (See chart for details) 45-year-old female, vital signs reviewed, presents to the emergency department with chief complaint of feeling dehydrated. Patient states when she feels like this she usually receives a liter or 2 of saline and feels much better. Patient's physical examination was nonconcerning. Patient's distal cap refill is less than 2 seconds, skin turgor was brisk tight and satisfactory. Related to patient's chief complaint will order saline lock, 1 L normal saline, and 4 mg Zofran for reported nausea. Urinalysis assay. The patient's urine was not infected, however did have moderate blood this is most likely related to patient just recently ending menstrual cycle. The patient's lab work unremarkable however calcium is 8.3. Upon reevaluation of the patient, the patient states she is still feeling nauseated. Will order IV Reglan for nausea and reevaluate after period of time. End of shift report discussed patient case with ED attending physician Dr. Sommers who has agreed to assume patient care and complete ED evaluation. Dr. Sommers has assumed patient care at this time. (MAURY MORTENSEN APRN) Course & Med Decision Making Sign out received from Maury HORNE for patient with N/V. Symptomatic treatment previously provided. Labs reviewed. IVF hydration given. Patient seen and evaluated by myself. Abdomen nonperitoneal. Patient requesting work noted. Work note provided. Patient stable for discharge with outpatient follow-up with PCP/GI. Discussed findings and plan with patient, who acknowledges understanding and agreement. (MAURY SOMMERS DO) Dragon Disclaimer Dragon Disclaimer This electronic medical record was generated, in whole or in part, using a voice recognition dictation system. (MAURY MORTENSEN APRN) Departure Departure: Impression: Primary Impression: Nausea & vomiting Disposition: HOME / SELF CARE / HOMELESS Condition: STABLE Referrals: JESÚS COUGHLIN MD (PCP) JOSE MANUEL HERNANDEZ MD Patient Instructions: Clear Liquid Diet, Ovnx-[id number], Nausea and Vomiting, Xkpn-[id number] Scripts Promethazine Hcl (PROMETHAZINE HCL) 25 Mg Supp.rect 25 MG RC TID PRN PRN for NAUSEA, #10 SUPP.RECT Prov: MAURY SOMMERS DO 09/08/20 Ondansetron (ONDANSETRON ODT) 4 Mg Tab.rapdis 1 TAB PO PRN Q6-8HRS PRN for NAUSEA, #16 TAB Prov: MAURY SOMMERS DO 09/08/20 Attending Signature Attending Signature I have personally interviewed and examined the patient. All charts, labs, and imaging studies were reviewed. I agree with the PA/SUPERINTENDENT LAUNDRY's findings, exam, and plan. (MAURY SOMMERS DO) Problem Qualifiers Primary Impression: Nausea & vomiting Vomiting type: unspecified Vomiting Intractability: intractable Qualified Codes: R11.2 - Nausea with vomiting, unspecified MAURY MORTENSEN APRN Sep 08, 2020 22:54 MAURY SOMMERS DO Sep 08, 2020 23:07
[2020-09-08] MEDS ORDERED: ONDA4TAB12 PO (23:06)
[2020-09-08] MEDS ORDERED: PROM25SU33 RC (23:06)
[2020-09-08 23:10] VITALS: BP 115/67
== END 2020-09-08 23:15 | disposition home or self-care (01) ==
LOC: ER 21:18
DX: R11.2 Nausea with vomiting, unspecified (principal); G43.909 Migraine, unspecified, not intractable, without status migrainosus; F41.9 Anxiety disorder, unspecified; M19.90 Unspecified osteoarthritis, unspecified site; F32.9 Major depressive disorder, single episode, unspecified; M79.7 Fibromyalgia; K21.9 Gastro-esophageal reflux disease without esophagitis; G89.29 Other chronic pain; Z90.49 Acquired absence of other specified parts of digestive tract; Z98.890 Other specified postprocedural states
CPT/HCPCS: 36415; 80053; 81001; 81025; 85025; 96361; 96374; 96375; 99284; J2405; J2765; J7030; 99283